=== PATIENT | female | born 1990 | race American Indian/Alaskan Native ===

== ENCOUNTER 2018-12-09 18:06 | Emergency (ER) | payer SELFPAY ==
[2018-12-09] MEDS ORDERED: PERCOCET 5/325 PO ONE (23:53)
[2018-12-09] MEDS ORDERED: CLEOCIN PO ONE (23:53)
[2018-12-09] MEDS ORDERED: BACTRIM DS PO ONE (23:53)
[2018-12-09] MEDS ORDERED: ZOFRAN ODT PO ONE (23:54)
[2018-12-09] MEDS ORDERED: IBUPROFEN PO ONE (23:54)
--- NOTE | 2018-12-10 00:54 | Emergency Department Report ---
ED General Adult HPI - General Chief complaint: Skin/Abscess/Foreign Body Stated complaint: OPEN WOUND RT AXILLA Source: patient Mode of arrival: Ambulatory Limitations: No Limitations - History of Present Illness Initial comments: Patient is a 28-year-old -[place] female with no past medical history presents with a complaint of acute onset persistent severe painful swollen ulcerated right axilla open wound with purulent discharge from the last one month. Patient states that the rash initially began as a small papule and subsequently became worse and opened began to drain the purulent discharge. Patient says that in the last 1 week the pain has been persistent and severe. Patient denies fever, chills, nausea, vomiting, dizziness, headache, chest pain or shortness of breath. Patient states that she has been taking [id number] ibuprofen for pain but that this has not helped the pain. MD Complaint: right axilla swollen ulcerated wound -: Gradual, month(s) (1) Location: upper extremity (right axilla) Radiation: non-radiation Severity scale (0 -10): 6 Quality: aching, sharp Consistency: constant Improves with: none Worsens with: none Associated Symptoms: denies other symptoms. denies: confusion, chest pain, cough, diaphoresis, fever/chills, headaches, loss of appetite, malaise, nausea/vomiting, shortness of breath, syncope, weakness Treatments Prior to Arrival: NSAID - Related Data Previous Rx's Medication Instructions Recorded Last Taken Type Acetaminophen/Codeine [Tylenol 1 tab PO Q6H PRN #12 tab 12/10/18 Unknown Rx /Codeine # 3 tab] Clindamycin [Clindamycin CAP] 300 mg PO Q8HR #60 capsule 12/10/18 Unknown Rx Ibuprofen [Motrin] 800 mg PO Q8HR PRN #24 tablet 12/10/18 Unknown Rx Ondansetron [Zofran Odt] 4 mg PO Q6HR PRN #15 tab.rapdis 12/10/18 Unknown Rx Sulfamethoxazole/Trimethoprim 1 each PO Q12H #20 tablet 12/10/18 Unknown Rx [Bactrim DS TAB] Allergies Allergy/AdvReac Type Severity Reaction Status Date / Time No Known Allergies Allergy Verified 12/09/18 18:09 ED Review of Systems ROS: Stated complaint: OPEN WOUND RT AXILLA Other details as noted in HPI Constitutional: denies: chills, fever Eyes: denies: eye pain, eye discharge, vision change ENT: denies: ear pain, throat pain Respiratory: denies: cough, shortness of breath, wheezing Cardiovascular: denies: chest pain, palpitations Endocrine: no symptoms reported Gastrointestinal: denies: abdominal pain, nausea, diarrhea Genitourinary: denies: urgency, dysuria, discharge Musculoskeletal: denies: back pain, joint swelling, arthralgia Skin: rash, other (right axilla pain due to erythematous ulcerated rash with open wound). denies: lesions Neurological: denies: headache, weakness, paresthesias Psychiatric: denies: anxiety, depression Hematological/Lymphatic: denies: easy bleeding, easy bruising ED Past Medical Hx - Past Medical History Previous Medical History?: Yes - Surgical History Past Surgical History?: Yes - Social History Smoking Status: Current Every Day Smoker Substance Use Type: None - Medications Home Medications: Home Medications Medication Instructions Recorded Confirmed Last Taken Type Acetaminophen/Codeine [Tylenol 1 tab PO Q6H PRN #12 tab 12/10/18 Unknown Rx /Codeine # 3 tab] Clindamycin [Clindamycin CAP] 300 mg PO Q8HR #60 capsule 12/10/18 Unknown Rx Ibuprofen [Motrin] 800 mg PO Q8HR PRN #24 tablet 12/10/18 Unknown Rx Ondansetron [Zofran Odt] 4 mg PO Q6HR PRN #15 tab.rapdis 12/10/18 Unknown Rx Sulfamethoxazole/Trimethoprim 1 each PO Q12H #20 tablet 12/10/18 Unknown Rx [Bactrim DS TAB] ED Physical Exam - General Limitations: No Limitations General appearance: alert, in no apparent distress - Head Head exam: Present: atraumatic, normocephalic, normal inspection - Eye Eye exam: Present: normal appearance, PERRL, EOMI Pupils: Present: normal accommodation - ENT ENT exam: Present: normal exam, normal orophraynx, mucous membranes moist, TM's normal bilaterally, normal external ear exam - Neck Neck exam: Present: normal inspection, full ROM - Respiratory Respiratory exam: Present: normal lung sounds bilaterally. Absent: respiratory distress, wheezes, chest wall tenderness, accessory muscle use, prolonged expiratory - Cardiovascular Cardiovascular Exam: Present: regular rate, normal rhythm, normal heart sounds. Absent: systolic murmur, diastolic murmur, rubs, gallop - GI/Abdominal GI/Abdominal exam: Present: soft, normal bowel sounds. Absent: tenderness, guarding, rebound, hyperactive bowel sounds, hypoactive bowel sounds - Rectal Rectal exam: Present: deferred - Extremities Exam Extremities exam: Present: normal inspection, full ROM, normal capillary refill - Back Exam Back exam: Present: normal inspection, full ROM. Absent: tenderness, CVA tenderness (R), CVA tenderness (L), muscle spasm, paraspinal tenderness, vertebral tenderness - Neurological Exam Neurological exam: Present: alert, oriented X3, CN II-XII intact, normal gait, reflexes normal - Psychiatric Psychiatric exam: Present: normal affect, normal mood - Skin Skin exam: Present: warm, dry, intact, normal color, rash (ulcerated erythematous maculopapular rash with purulent discharge on the right axilla), erythema ED Course Vital Signs 12/09/18 12/09/18 12/09/18 18:50 22:45 22:46 Temperature 98.5 F 98.2 F 98.2 F Pulse Rate 79 60 60 Respiratory 16 18 18 Rate Blood Pressure 161/73 172/91 172/91 O2 Sat by Pulse 96 100 100 Oximetry - Reevaluation(s) Reevaluation #1: 12/10/18 00:59 This is a 28-year-old -[place] female who presented to the ED with ulcerated open wound on the right axilla for one month. In the ED, patient is alert and oriented 3 and is not in distress. Patient was treated for pain in the ED and given initial oral antibiotic dose and discharged home on pain medications and antibiotics. Patient had the wound cleaned and dressed appropriately prior to being discharged home. Patient was advised to return to the ED immediately if symptoms get worse, otherwise follow-up with her primary care physician in 7-10 days for reevaluation. ED Medical Decision Making - Medical Decision Making This is a 28-year-old -[place] female who presented to the ED with ulcerated open wound on the right axilla for one month. In the ED, patient is alert and oriented 3 and is not in distress. Patient was treated for pain in the ED and given initial oral antibiotic dose and discharged home on pain medications and antibiotics. Patient had the wound cleaned and dressed appropriately prior to being discharged home. Patient was advised to return to the ED immediately if symptoms get worse, otherwise follow-up with her primary care physician in 7-10 days for reevaluation. - Differential Diagnosis Hidradenitis suppurativa; folliculitis; cellulitis; abscess Critical care attestation.: If time is entered above; I have spent that time in minutes in the direct care of this critically ill patient, excluding procedure time. ED Disposition Clinical Impression: Cellulitis of right axilla, Abscess of right axilla, Acute folliculitis Disposition: TO HOME OR SELFCARE Is pt being admited?: No Does the pt Need Aspirin: No Condition: Stable Instructions: Folliculitis (ED), Cellulitis (ED), Abscess (ED) Additional Instructions: Take medication with food, drink plenty of fluids and follow up with your primary care physician in 5-7 days for reevaluation. Return to the ED immediately if symptoms get worse. Prescriptions: Sulfamethoxazole/Trimethoprim [Bactrim DS TAB] 1 each PO Q12H #20 tablet Clindamycin [Clindamycin CAP] 300 mg PO Q8HR #60 capsule Ibuprofen [Motrin] 800 mg PO Q8HR PRN #24 tablet PRN Reason: Pain , Severe (7-10) Acetaminophen/Codeine [Tylenol /Codeine # 3 tab] 1 tab PO Q6H PRN #12 tab PRN Reason: Pain , Severe (7-10) Ondansetron [Zofran Odt] 4 mg PO Q6HR PRN #15 tab.rapdis PRN Reason: Nausea Referrals: PRIMARY CARE,MD [Primary Care Provider] - 3-5 Days Forms: Work/School Release Form(ED) Time of Disposition: 00:51 Print Language: KHMER
[2018-12-10 01:16] VITALS: BP 154/89
== END 2018-12-10 01:17 | disposition home or self-care (01) ==
LOC: ED 18:06
DX: L02.411 Cutaneous abscess of right axilla (principal); L73.9 Follicular disorder, unspecified; F17.200 Nicotine dependence, unspecified, uncomplicated
CPT/HCPCS: Q0162